=== PATIENT | female | born 1995 | race American Indian/Alaskan Native ===

== ENCOUNTER 2021-03-31 05:03 | Emergency (ER) | payer SELFPAY ==
--- NOTE | 2021-03-31 05:25 | Event Note ---
ED Screening Note Date of service: 03/31/21 Time: : ED Screening Note: Patient is an adult female brought in by EMS for altered mental status. Patient was reportedly found naked running behind a gas station. Police and EMS were called and the patient continued to exhibit erratic behavior necessitating sedation by EMS with Versed 5 mg, Benadryl 50 mg and Haldol 5 prior to arrival. Patient sleeping upon arrival This initial assessment/diagnostic orders/clinical plan/treatment(s) is/are subject to change based on patients health status, clinical progression and re- assessment by fellow clinical providers in the ED. Further treatment and workup at subsequent clinical providers discretion. Patient/guardian urged not to elope from the ED as their condition may be serious if not clinically assessed and managed. Initial orders include: CBC, CMP, thyroid panel, S hCG, CK, UA, UDS, blood alcohol, CT head, EKG
[2021-03-31 05:54] LABS: Basophils # (Auto) 0.1 K/mm3 (0.0-0.1); Basophils % (Auto) 0.6 % (0.0-1.8); Eosinophils # (Auto) 0.1 K/mm3 (0.0-0.4); Hematocrit 37.9 % (30.3-42.9); Hemoglobin 12.6 gm/dl (10.1-14.3); Lymphocytes # (Auto) 1.4 K/mm3 (1.2-5.4); Lymphocytes % (Auto) 12.3 % (13.4-35.0); Mean Corpuscular HGB Conc 33 % (30-34); Mean Corpuscular Volume 90 fl (79-97); Monocytes # (Auto) 0.8 K/mm3 (0.0-0.8); Monocytes % (Auto) 6.5 % (0.0-7.3); Platelet Count 226 K/mm3 (140-440); Red Blood Count 4.22 M/mm3 (3.65-5.03); Red Cell Distribution Width 12.9 % (13.2-15.2)
[2021-03-31 05:57] LABS: Alanine Aminotransferase 35 units/L (7-56); Albumin 4.2 g/dL (3.9-5); Blood Urea Nitrogen 11 mg/dL (7-17); Hemolysis Index 5
[2021-03-31 06:01] LABS: BUN/Creatinine Ratio 18
[2021-03-31 06:09] LABS: Free T4 (Free Thyroxine) 1.36 ng/dL (0.76-1.46)
--- NOTE | 2021-03-31 06:09 | Emergency Department Report ---
ED General Adult HPI - General Chief complaint: Altered Mental Status Stated complaint: AMS Time Seen by Provider: 03/31/21 06:00 Source: police, EMS ( EMS documentation not available at time of chart dictation ), RN notes reviewed Mode of arrival: Stretcher Limitations: Altered Mental Status - History of Present Illness Initial comments: The patient was evaluated in the emergency department for symptoms described in the history of present illness. He/she was evaluated in the context of the global COVID-19 pandemic, which necessitated consideration that the patient might be at risk for infection with the virus that causes COVID-19. Institutional protocols and algorithms that pertain to the evaluation of patients at risk for COVID-19 are in a state of rapid change based on information released by regulatory bodies including the CDC and federal and state organizations. These policies and algorithms were followed during the patient's care in the emergency department. Please note that these policies, procedures and recommendations changed on a rapid basis. This is an -Filipino female, who appears to be in her mid 30s, who is not known to myself previously. The patient is currently sedated and disorganized. History obtained from review of medical records and verbal report from preceding physician and nursing team. The patient is reportedly found naked behind a gas station. She was reportedly acting bizarrely and erratically. It is not known who contacted 911 or emergency medical services. Patient reportedly agitated, and prior to my personal evaluation of this patient, received Haldol, Benadryl, and Ativan, reportedly for agitation. In the emergency room, the patient is sedated, moves 4 extremities, and is disor ganized. 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 She is not accompanied by friends or family at this time for collateral information or additional information. No additional history is available at this time -: unknown Severity scale (0 -10): 0 - Related Data Allergies Allergy/AdvReac Type Severity Reaction Status Date / Time Unable to Assess Allergy Unverified 03/31/21 06:13 ED Review of Systems ROS: Stated complaint: AMS Other details as noted in HPI Comment: Unobtainable due to pts medical conditions ED Physical Exam - General Limitations: Altered Mental Status General appearance: in no apparent distress - Head Head exam: Present: atraumatic, normocephalic - Eye Eye exam: Present: normal appearance, EOMI. Absent: nystagmus - ENT ENT exam: Present: normal exam, normal orophraynx, mucous membranes moist, normal external ear exam - Neck Neck exam: Present: normal inspection, full ROM. Absent: tenderness, meningismus - Respiratory Respiratory exam: Present: normal lung sounds bilaterally. Absent: respiratory distress, wheezes, rales, stridor, decreased breath sounds - Cardiovascular Cardiovascular Exam: Present: regular rate, normal rhythm, normal heart sounds. Absent: bradycardia, tachycardia, irregular rhythm, systolic murmur, diastolic murmur, rubs, gallop - GI/Abdominal GI/Abdominal exam: Present: soft, normal bowel sounds. Absent: distended, tenderness, guarding, rebound, rigid, pulsatile mass - External exam: Present: normal external exam - Extremities Exam Extremities exam: Present: normal inspection, full ROM, other (2+ pulses noted in the bilateral upper and lower extremities. There is no palpable cord. negative Homans sign. Muscular compartments are soft. The pelvis is stable.). Absent: pedal edema, calf tenderness - Back Exam Back exam: Present: normal inspection. Absent: tenderness, CVA tenderness (R), CVA tenderness (L), paraspinal tenderness, vertebral tenderness - Neurological Exam Neurological exam: Present: altered, other (Moves 4 extremities spontaneously. Answers questions nonsensically occasionally. No facial droop. Sensation intact to pinch in 4 extremities.) - Skin Skin exam: Present: warm, dry, intact, normal color. Absent: rash ED Course Vital Signs 03/31/21 03/31/21 03/31/21 05:14 05:35 06:27 Temperature 98.9 F 97.8 F 97.8 F Pulse Rate 83 70 68 Respiratory 18 20 20 Rate Blood Pressure 127/75 124/73 113/62 [Left] O2 Sat by Pulse 98 100 99 Oximetry O2 Sat by Pulse Oximetry [ Digit-Finger] 03/31/21 06:28 Temperature Pulse Rate Respiratory Rate Blood Pressure [Left] O2 Sat by Pulse Oximetry O2 Sat by Pulse 99 Oximetry [ Digit-Finger] - Reevaluation(s) Reevaluation #1: 03/31/21 06:11 Differential diagnosis, including but not limited to: Psychosis, thyroid derangement, electrolyte derangement, urinary tract infection, intracranial lesion Assessment and plan: Young -Filipino female with psychosis and disorganized behavior, who was afebrile with reassuring vital signs without meningeal signs. Suspect Sulphur I psychiatric diagnosis, versus drug-induced psychosis versus both. Patient placed on 1013 for psychotic behavior and inability to care for self. Laboratory studies pending. Noncontrast CT scan of the brain, urinalysis and EKG pending. Psychiatric consultation requested, Covid swab ordered in anticipation of psychiatric disposition. Reevaluation #2: 03/31/21 06:[address] scan of the brain to my interpretation appears to be negative for acute findings. Formal radiology interpretation is pending. Laboratory studies and EKG are unremarkable, mild hypokalemia reviewed and appreciated, oral potassium is ordered. The urinalysis is pending, and the emergency room will follow along. Urine drug screen will not change our clinical decision making at this time. At this point in time, this patient does not appear to have an immediate medical contraindication to psychiatric admission, evaluation, consultation and placement. - Pulse Oximetry Interpretation Digit-Finger Initial Pulse Oximetry Readin O2 Sat by Pulse Oximetry: 99 Actions Taken: none ED Medical Decision Making - Lab Data Result diagrams: 03/31/21 05:23 03/31/21 05:23 Vital Signs 03/31/21 03/31/21 05:14 05:35 Temperature 98.9 F 97.8 F Pulse Rate 83 70 Respiratory 18 20 Rate Blood Pressure 127/75 124/73 [Left] O2 Sat by Pulse 98 100 Oximetry Lab Results 03/31/21 03/31/21 03/31/21 Range/Units 05:23 05:23 05:23 WBC 11.6 H (4.5-11.0) K/mm3 RBC 4.22 (3.65-5.03) M/mm3 Hgb 12.6 (10.1-14.3) gm/dl Hct 37.9 (30.3-42.9) % MCV 90 (79-97) fl MCH 30 (28-32) pg MCHC 33 (30-34) % RDW 12.9 L (13.2-15.2) % Plt Count 226 (140-440) K/mm3 Lymph % (Auto) 12.3 L (13.4-35.0) % Winkler % (Auto) 6.5 (0.0-7.3) % Eos % (Auto) 1.0 (0.0-4.3) % Baso % (Auto) 0.6 (0.0-1.8) % Lymph # (Auto) 1.4 (1.2-5.4) K/mm3 Winkler # (Auto) 0.8 (0.0-0.8) K/mm3 Eos # (Auto) 0.1 (0.0-0.4) K/mm3 Baso # (Auto) 0.1 (0.0-0.1) K/mm3 Seg Neutrophils % 79.6 H (40.0-70.0) % Seg Neutrophils # 9.3 H (1.8-7.7) K/mm3 Sodium 139 (137-145) mmol/L Potassium 3.3 L (3.6-5.0) mmol/L Chloride 105.4 (98-107) mmol/L Carbon Dioxide 20 L (22-30) mmol/L Anion Gap 17 mmol/L BUN 11 (7-17) mg/dL Creatinine 0.6 (0.6-1.2) mg/dL Estimated GFR > 60 ml/min BUN/Creatinine Ratio 18 % Glucose 95 (65-100) mg/dL Calcium 9.0 (8.4-10.2) mg/dL Total Bilirubin 1.10 (0.1-1.2) mg/dL AST 79 H (5-40) units/L ALT 35 (7-56) units/L Alkaline Phosphatase 40 (35-129) units/L Total Protein 7.0 (6.3-8.2) g/dL Albumin 4.2 (3.9-5) g/dL Albumin/Globulin Ratio 1.5 % HCG, Qual (Negative) Salicylates < 0.3 L (2.8-20.0) mg/dL Acetaminophen (10.0-30.0) ug/mL 03/31/21 03/31/21 Range/Units 05:23 05:23 WBC (4.5-11.0) K/mm3 RBC (3.65-5.03) M/mm3 Hgb (10.1-14.3) gm/dl Hct (30.3-42.9) % MCV (79-97) fl MCH (28-32) pg MCHC (30-34) % RDW (13.2-15.2) % Plt Count (140-440) K/mm3 Lymph % (Auto) (13.4-35.0) % [place]inkler % (Auto) (0.0-7.3) % Eos % (Auto) (0.0-4.3) % Baso % (Auto) (0.0-1.8) % Lymph # (Auto) (1.2-5.4) K/mm3 Winkler # (Auto) (0.0-0.8) K/mm3 Eos # (Auto) (0.0-0.4) K/mm3 Baso # (Auto) (0.0-0.1) K/mm3 Seg Neutrophils % (40.0-70.0) % Seg Neutrophils # (1.8-7.7) K/mm3 Sodium (137-145) mmol/L Potassium (3.6-5.0) mmol/L Chloride (98-107) mmol/L Carbon Dioxide (22-30) mmol/L Anion Gap mmol/L BUN (7-17) mg/dL Creatinine (0.6-1.2) mg/dL Estimated GFR ml/min BUN/Creatinine Ratio % Glucose (65-100) mg/dL Calcium (8.4-10.2) mg/dL Total Bilirubin (0.1-1.2) mg/dL AST (5-40) units/L ALT (7-56) units/L Alkaline Phosphatase (35-129) units/L Total Protein (6.3-8.2) g/dL Albumin (3.9-5) g/dL Albumin/Globulin Ratio % HCG, Qual Negative (Negative) Salicylates (2.8-20.0) mg/dL Acetaminophen 5.0 L (10.0-30.0) ug/mL - EKG Data -: EKG Interpreted by Me EKG shows normal: sinus rhythm Rate: normal - EKG Data When compared to previous EKG there are: previous EKG unavailable 03/31/21 06:27 The EKG is interpreted at 06: 22 Sinus rhythm, rate 67 bpm. Normal axis, normal intervals, normal P wave axis. This is not a STEMI - Radiology Data Radiology results: pending, report reviewed, image reviewed interpreted by me: Noncontrast CT scan of the brain, reviewed by myself, demonstrates no acute findings. Specifically, no evidence of mass, intracranial hemorrhage, or ob structive hydrocephalus. The visualized bony structures are unremarkable. . CT HEAD WITHOUT CONTRAST INDICATION / CLINICAL INFORMATION: Altered mental status. TECHNIQUE: All CT scans at this location are performed using CT dose reduction for ALARA by means of automated exposure control. COMPARISON: None available. FINDINGS: No acute intracranial hemorrhage. Ventricles are normal in size without midline shift or mass effect. No extra-axial fluid collection is seen. Sella appears normal ADDITIONAL FINDINGS: None. IMPRESSION: 1. No acute intracranial abnormality. Signer Name: Dejan Pantoja MD Signed: 03/31/2021 5:33 AM Workstation Name: [id number] Critical care attestation.: If time is entered above; I have spent that time in minutes in the direct care of this critically ill patient, excluding procedure time. ED Disposition Clinical Impression: Psychosis, Agitation, Medical clearance for psychiatric admission Disposition: [address] [place] [address] Is pt being admited?: No Does the pt Need Aspirin: No Condition: Good
--- NOTE | 2021-03-31 06:38 | Cat Scan Report ---
. CT HEAD WITHOUT CONTRAST INDICATION / CLINICAL INFORMATION: Altered mental status. TECHNIQUE: All CT scans at this location are performed using CT dose reduction for ALARA by means of automated e xposure control. COMPARISON: None available. FINDINGS: No acute intracranial hemorrhage. Ventricles are normal in size without midline shift or mass effect. No extra-axial fluid collection is seen. Sella appears normal ADDITIONAL FINDINGS: None. IMPRESSION: 1. No acute intracranial abnormality. Signer Name: Dejan Pantoja MD Signed: 03/31/2021 6:33 AM Workstation Name: [email or web address]
[2021-03-31] MEDS: LORazepam 2 MG/ML VIAL IM PRN (10:06)
[2021-03-31] MEDS: POTASSIUM CHLORIDE ER 20 MEQ TAB PO SCH (10:06)
--- NOTE | 2021-03-31 13:04 | Consultation ---
History of Present Illness - Reason for Consult Consult date: 03/31/21 Reason for consult: mental health evaluation - History of Present Psychiatric Illness ED Note: This is an -British female, who appears to be in her mid 30s, who is not known to myself previously. The patient is currently sedated and disorganized. History obtained from review of medical records and verbal report from preceding physician and nursing team. The patient is reportedly found naked behind a gas station. She was reportedly acting bizarrely and erratically. It is not known who contacted 911 or emergency medical services. Patient reportedly agitated, and prior to my personal evaluation of this patient, received Haldol, Benadryl, and Ativan, reportedly for agitation. In the emergency room, the patient is sedated, moves 4 extremities, and is disorganized. 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 She is not accompanied by friends or family at this time for collateral information or additional information. The patient was seen this morning. The patient is known to the designer/writer;she has a history of bipolar. In my interview with the patient, she presents with disorganized thoughts, rapid and pressured speech. The patient is alert but lacks orientation. PAST PSYCHIATRIC HISTORY PAST MEDICAL HISTORY: Family Psychiatric History: None reported or documented SOCIAL HISTORY REVIEW OF SYSTEMS MENTAL STATUS EXAMINATION General Appearance and Behavior: Poor hygiene, poor eye contact, calm and cooperative. Cooperation: cooperative Psychomotor Behavior: unremarkable and within normal limits Mood: confused Affect and affective range: congruent with mood Thought Process: Tangential Thought Content: Disorganized Speech:rapid,pressured Suicidal Ideation: Unable to assess Homicidal Ideation: unable to assess Hallucinations: Unable to assess Delusions: None elicited Impulse Control: Impaired Insight and Judgment:Nil insight and poor judgment Memory: Impaired Attention: Distractible Orientation: Alert, Assessment (1) Bipolar C 1013 Treatment Plan Continue previously prescribed meds Start Depakote Dr 500mg po BID Start Seroquel 100mg po QHS Start Seroquel 50mg po BID Medical: per primary Disposition: Recommend acute psychiatric inpatient treatment Will follow. Thanks Case staffed with Dr. Jean-Baptiste Medications and Allergies Medications and Allergies Allergies Allergy/AdvReac Type Severity Reaction Status Date / Time Unable to Assess Allergy Unverified 03/31/21 06:13 Active Meds: Active Medications Haloperidol Lactate (Haloperidol Lactate 5 Mg/1 Ml Inj) 5 mg IM Q6H PRN PRN Reason: Agitation Lorazepam (Lorazepam 2 Mg/Ml Vial) 2 mg IM Q4H PRN PRN Reason: Agitation Last Admin: 03/31/21 10:06 Dose: 2 mg Potassium Chloride (Potassium Chloride Er 20 Meq Tab) 40 meq PO QDAY DAMION Last Admin: 03/31/21 10:06 Dose: Not Given Mental Status Exam - Vital signs Last Vital Signs Temp 97.8 F 03/31/21 06:27 Pulse 95 H 03/31/21 09:23 Resp 15 03/31/21 09:23 BP 97/77 03/31/21 09:23 Pulse Ox 100 03/31/21 09:23 Results Result Diagrams: 03/31/21 05:23 03/31/21 05:23 Abnormal lab results 03/31/21 03/31/21 03/31/21 Range/Units 05:23 05:23 05:23 WBC 11.6 H (4.5-11.0) K/mm3 RDW 12.9 L (13.2-15.2) % Lymph % (Auto) 12.3 L (13.4-35.0) % Seg Neutrophils % 79.6 H (40.0-70.0) % Seg Neutrophils # 9.3 H (1.8-7.7) K/mm3 Potassium 3.3 L (3.6-5.0) mmol/L Carbon Dioxide 20 L (22-30) mmol/L AST 79 H (5-40) units/L Total Creatine Kinase 3977 H (30-135) units/L Salicylates < 0.3 L (2.8-20.0) mg/dL Acetaminophen (10.0-30.0) ug/mL 03/31/21 Range/Units 05:23 WBC (4.5-11.0) K/mm3 RDW (13.2-15.2) % Lymph % (Auto) (13.4-35.0) % Seg Neutrophils % (40.0-70.0) % Seg Neutrophils # (1.8-7.7) K/mm3 Potassium (3.6-5.0) mmol/L Carbon Dioxide (22-30) mmol/L AST (5-40) units/L Total Creatine Kinase (30-135) units/L Salicylates (2.8-20.0) mg/dL Acetaminophen 5.0 L (10.0-30.0) ug/mL All other labs normal.
[2021-03-31] MEDS: DIVALPROEX DR 500 MG TAB PO SCH ×2 (15:02→22:59)
[2021-03-31] MEDS ORDERED: QUEtiapine 25 MG TAB PO SCH (22:00)
[2021-03-31] MEDS ORDERED: QUEtiapine 100 MG TAB PO SCH (22:00)
[2021-04-01] MEDS: LORazepam 2 MG/ML VIAL IM PRN (07:16)
[2021-04-01] MEDS: HALOPERIDOL LACTATE 5 MG/1 ML INJ IM PRN (07:16)
--- NOTE | 2021-04-01 09:35 | Progress Note ---
Subjective - Reason for Consult Consult date: 04/01/21 Reason for consult: psychosis - Chief Complaint Chief complaint: The patient was seen today. She is in the observation room. She is irritable. She is pacing and hits the glass. Her thoughts are disorganized. She doesn't answer any question I ask her, she just rambles most of the time. REVIEW OF SYSTEMS MENTAL STATUS EXAMINATION General Appearance and Behavior: Poor hygiene, poor eye contact, irritable, and cooperative. Cooperation: cooperative Psychomotor Behavior: unremarkable and within normal limits Mood: irritable Affect and affective range: congruent with mood Thought Process: Tangential Thought Content: Disorganized Speech: rambling Suicidal Ideation: Unable to assess Homicidal Ideation: unable to assess Hallucinations: Unable to assess Delusions: None elicited Impulse Control: Impaired Insight and Judgment:Nil insight and poor judgment Memory: Impaired Attention: Distractible Orientation: Alert, Assessment (1) Bipolar Treatment Plan 1013 Increase Seroquel 100mg po TID Medical: per primary Disposition: Recommend acute psychiatric inpatient treatment Will follow. Thanks Case staffed with Dr. Jean-Baptiste Mental Status Exam - Vital signs Last Vital Signs Temp 97.8 F 03/31/21 21:14 Pulse 75 03/31/21 21:14 Resp 20 03/31/21 21:14 BP 120/68 03/31/21 21:14 Pulse Ox 100 03/31/21 21:14
[2021-04-01] MEDS ORDERED: SERTRALINE 100 MG TAB ONE (10:24)
[2021-04-01] MEDS: DIVALPROEX DR 500 MG TAB PO SCH ×2 (10:25→22:15)
[2021-04-01] MEDS: POTASSIUM CHLORIDE ER 20 MEQ TAB PO SCH (10:25)
[2021-04-01] MEDS: QUEtiapine 100 MG TAB PO SCH ×3 (10:26→22:15)
--- NOTE | 2021-04-01 11:42 | Emergency Department Report ---
Blank Doc - Documentation Documentation: 26-year-old female currently on 1013 with psychosis and disorganized behavior continually taken off her clothes. Tolerating p.o. medication. Requiring IM medication. Refuses Covid test. Vital signs stable. Awaiting placement
[2021-04-02] MEDS: QUEtiapine 100 MG TAB PO SCH (09:11)
[2021-04-02] MEDS ORDERED: IBUPROFEN 600 MG TAB PO ONE (09:30)
--- NOTE | 2021-04-02 09:36 | Progress Note ---
Subjective - Reason for Consult Consult date: 04/02/21 Reason for consult: psychosis - Chief Complaint Chief complaint: The patient was seen today. She is still acutely psychotic. Her mood is elevated. She says she's doing wonderful. The patient also says she's blessed and highly favored. She is rambling about nonsensical things. Staff says she's been smearing poop over the wall. REVIEW OF SYSTEMS MENTAL STATUS EXAMINATION General Appearance and Behavior: Poor hygiene, poor eye contact, irritable, and cooperative. Cooperation: cooperative Psychomotor Behavior: unremarkable and within normal limits Mood: irritable Affect and affective range: congruent with mood Thought Process: Tangential Thought Content: Disorganized Speech: rambling Suicidal Ideation: Unable to assess Homicidal Ideation: unable to assess Hallucinations: Unable to assess Delusions: None elicited Impulse Control: Impaired Insight and Judgment:Nil insight and poor judgment Memory: Impaired Attention: Distractible Orientation: Alert, Assessment (1) Bipolar Treatment Plan 1013 Increase Seroquel 200mg po BID Medical: per primary Disposition: Recommend acute psychiatric inpatient treatment Will follow. Thanks Case staffed with Dr. Jean-Baptiste Mental Status Exam - Vital signs Last Vital Signs Temp 97.5 F L 04/02/21 04:46 Pulse 69 04/02/21 04:46 Resp 18 04/02/21 09:33 BP 108/78 04/02/21 04:46 Pulse Ox 99 04/02/21 04:46
[2021-04-02] MEDS: LORazepam 2 MG/ML VIAL IM PRN ×2 (11:05→17:03)
[2021-04-02] MEDS: HALOPERIDOL LACTATE 5 MG/1 ML INJ IM PRN ×2 (11:06→17:03)
[2021-04-02] MEDS: DIVALPROEX DR 500 MG TAB PO SCH ×2 (11:11→22:20)
[2021-04-02] MEDS: POTASSIUM CHLORIDE ER 20 MEQ TAB PO SCH (11:11)
[2021-04-02] MEDS: QUEtiapine 200 MG TAB PO SCH ×2 (11:11→22:20)
--- NOTE | 2021-04-02 11:39 | Electrocardiograph Report ---
[facility] Test Date: 2021-03-31 Test Time: 06:22:23 Pat Name: JAVED BROWN Department: Room: Gender: F Public Health Inspector: ELIAZAR : 1995 Requested By: SAROJ ROTHMAN Order Number: [id number] Reading MD: Anil Loya Measurements Intervals [place] Rate: 67 P: 67 SC: 134 QRS: 32 QRSD: 92 T: 55 QT: 400 QTc: 422 Interpretive Statements Sinus rhythm No previous ECG available for comparison Electronically Signed On 04-02-2021 11:39:07 EST by Anil Loya
--- NOTE | 2021-04-02 12:31 | Event Note ---
Date: 04/02/21 26-year-old female here with psychosis. She was seen by my colleague and was medically cleared for psychiatric evaluation placement. Vital signs reviewed and are stable. Overnight there were no acute events although the patient has continued to display psychotic behavior and at one point was seen playing with feces. Currently awaiting inpatient psychiatric facility placement.
--- NOTE | 2021-04-03 09:21 | Emergency Department Report ---
Blank Doc - Documentation Documentation: Patient is here with acute psychosis. There were no events throughout the [facility]. We are awaiting psychiatric placement. Labs have been reviewed.
--- NOTE | 2021-04-03 09:41 | Progress Note ---
Subjective - Reason for Consult Consult date: 04/03/21 Reason for consult: psychosis - Chief Complaint Chief complaint: The patient was seen today. Her affect is flat. She is responding to internal stimuli. She says "I'm aggravated." The patient's speech is disorganized. She is repeating words, and making repetitive sounds. She says "I need the quietapine." She denies SI/HI. REVIEW OF SYSTEMS MENTAL STATUS EXAMINATION General Appearance and Behavior: Poor hygiene, poor eye contact, irritable, and cooperative. Cooperation: cooperative Psychomotor Behavior: unremarkable and within normal limits Mood: irritable Affect and affective range: congruent with mood Thought Process: Tangential Thought Content: Disorganized Speech: rambling Suicidal Ideation: Unable to assess Homicidal Ideation: unable to assess Hallucinations: Unable to assess Delusions: None elicited Impulse Control: Impaired Insight and Judgment:Nil insight and poor judgment Memory: Impaired Attention: Distractible Orientation: Alert, Assessment (1) Bipolar Treatment Plan 1013 Increase Seroquel 300mg po BID Medical: per primary Disposition: Recommend acute psychiatric inpatient treatment Will follow. Thanks Case staffed with Dr. Jean-Baptiste Mental Status Exam - Vital signs Last Vital Signs Temp 97.6 F 04/02/21 21:07 Pulse 84 04/02/21 21:07 Resp 18 04/03/21 05:29 BP 133/89 04/02/21 21:07 Pulse Ox 97 04/03/21 05:29
[2021-04-03 10:11] LABS: Amphetamine Screen,Urine Negative; Benzodiazepines Screen,Urine Negative; Cannabinoid Screen,Urine Negative; Cocaine Screen,Urine Negative; Methadone Screen,Urine Negative; Opiate Screen,Urine Negative
[2021-04-03] MEDS: POTASSIUM CHLORIDE ER 20 MEQ TAB PO SCH (10:13)
[2021-04-03] MEDS: DIVALPROEX DR 500 MG TAB PO SCH ×2 (10:13→22:25)
[2021-04-03 10:28] LABS: Bilirubin,Urine NEG (Negative); Blood,Urine NEG (Negative); Color,Urine Yellow (Yellow); Protein,Urine <15 mg/dL mg/dL (Negative); WBC,Urine < 1.0 /HPF (0.0-6.0)
[2021-04-03] MEDS: QUEtiapine 100 MG TAB PO SCH ×2 (11:01→22:25)
[2021-04-03] MEDS: LORazepam 2 MG/ML VIAL IM PRN (16:10)
[2021-04-03] MEDS: HALOPERIDOL LACTATE 5 MG/1 ML INJ IM PRN (16:10)
--- NOTE | 2021-04-04 08:47 | Progress Note ---
Subjective - Reason for Consult Consult date: 04/04/21 Reason for consult: Psychosis - Chief Complaint Chief complaint: The patient was seen today. She has the linen over her head. She is says she is feeling "great." She asks, "how much longer are you going to re-hostage evil." The patient denies SI/HI. She says "why would I do that. I love myself and my family." She denies hallucinations. The nursing staff states the patient has been confused, restless, and states she fulled down her pants and defecated on the floor. REVIEW OF SYSTEMS MENTAL STATUS EXAMINATION General Appearance and Behavior: Poor hygiene, poor eye contact, irritable, and cooperative. Cooperation: cooperative Psychomotor Behavior: unremarkable and within normal limits Mood: great Affect and affective range: congruent with mood Thought Process: Tangential Thought Content: Disorganized Speech: rambling Suicidal Ideation: Unable to assess Homicidal Ideation: unable to assess Hallucinations: Unable to assess Delusions:Yes Impulse Control: Impaired Insight and Judgment: Poor insight and poor judgment Memory: Impaired Attention: Distractible Orientation: Alert, Assessment (1) Bipolar Treatment Plan 1013 Start Trazodone 50mg po qhs Start Klonopin 0.25mg po BID x 3 days Seroquel 300mg po BID Medical: per primary Disposition: Recommend acute psychiatric inpatient treatment Will follow. Thanks Case staffed with Dr. Jean-Baptiste Mental Status Exam - Vital signs Last Vital Signs Temp 98.3 F 04/03/21 20:03 Pulse 94 H 04/03/21 20:03 Resp 18 04/03/21 20:03 BP 123/85 04/03/21 20:03 Pulse Ox 100 04/04/21 07:46
[2021-04-04] MEDS: QUEtiapine 100 MG TAB PO SCH ×2 (09:47→22:50)
[2021-04-04] MEDS: clonazePAM 0.5 MG TAB PO SCH ×2 (09:47→22:45)
[2021-04-04] MEDS: DIVALPROEX DR 500 MG TAB PO SCH ×2 (09:47→22:49)
[2021-04-04] MEDS: POTASSIUM CHLORIDE ER 20 MEQ TAB PO SCH (09:47)
--- NOTE | 2021-04-04 11:32 | Emergency Department Report ---
Blank Doc - Documentation Documentation: Patient is still psychotic. Her bipolar disorder has been decompensated. We are awaiting psychiatric admission.
[2021-04-04] MEDS: HALOPERIDOL LACTATE 5 MG/1 ML INJ IM PRN (13:59)
[2021-04-04] MEDS: traZODone 50 MG TAB PO SCH (22:49)
--- NOTE | 2021-04-05 10:32 | Progress Note ---
Subjective - Reason for Consult Consult date: 04/05/21 Reason for consult: phsychosis - Chief Complaint Chief complaint: The patient was seen today. She is lying on a bench in hallway. She still presents as psychotic, although she is asking to go home. She says "I feel great. I'm just staying out the mix." She denies SI/HI or hallucinations. Staff states the patient has been pushing limits with staff and has had increasing agitation. REVIEW OF SYSTEMS MENTAL STATUS EXAMINATION General Appearance and Behavior: Poor hygiene, poor eye contact, irritable, and cooperative. Cooperation: cooperative Psychomotor Behavior: unremarkable and within normal limits Mood: great Affect and affective range: congruent with mood Thought Process: Tangential Thought Content: Disorganized Speech: rambling Suicidal Ideation: Unable to assess Homicidal Ideation: unable to assess Hallucinations: Unable to assess Delusions:Yes Impulse Control: Impaired Insight and Judgment: Poor insight and poor judgment Memory: Impaired Attention: Distractible Orientation: Alert, Assessment (1) Bipolar Treatment Plan [address] 500mg po TID Medical: per primary Disposition: Recommend acute psychiatric inpatient treatment Will follow. Thanks Case staffed with Dr. Jean-Baptiste Mental Status Exam - Vital signs Last Vital Signs Temp 98.2 F 04/05/21 02:54 Pulse 74 04/05/21 02:54 Resp 16 04/05/21 02:54 BP 108/57 04/05/21 02:54 Pulse Ox 98 04/05/21 02:54
--- NOTE | 2021-04-05 11:20 | Emergency Department Report ---
Blank Doc - Documentation Documentation: Chart reviewed 26-year-old female currently on 1013 for acute psychosis awaiting placement. Patient required IM medication for agitation last night. She is compliant with p.o. medication. Vital signs within normal limits
[2021-04-05] MEDS: clonazePAM 0.5 MG TAB PO SCH ×2 (13:25→22:45)
[2021-04-05] MEDS: POTASSIUM CHLORIDE ER 20 MEQ TAB PO SCH (13:25)
[2021-04-05] MEDS: QUEtiapine 100 MG TAB PO SCH ×2 (13:26→22:45)
[2021-04-05 14:39] LABS: Basophils # (Auto) 0.1 K/mm3 (0.0-0.1); Eosinophils # (Auto) 0.3 K/mm3 (0.0-0.4); Eosinophils % (Auto) 3.4 % (0.0-4.3); Hematocrit 39.6 % (30.3-42.9); Hemoglobin 12.8 gm/dl (10.1-14.3); Lymphocytes # (Auto) 2.1 K/mm3 (1.2-5.4); Lymphocytes % (Auto) 27.5 % (13.4-35.0); Mean Corpuscular HGB Conc 32 % (30-34); Mean Corpuscular Volume 93 fl (79-97); Monocytes # (Auto) 0.5 K/mm3 (0.0-0.8); Monocytes % (Auto) 6.5 % (0.0-7.3); Platelet Count 200 K/mm3 (140-440); Red Blood Count 4.26 M/mm3 (3.65-5.03); Red Cell Distribution Width 13.1 % (13.2-15.2)
[2021-04-05] MEDS: DIVALPROEX DR 500 MG TAB PO SCH (22:45)
[2021-04-05] MEDS: traZODone 50 MG TAB PO SCH (22:45)
[2021-04-06] MEDS: POTASSIUM CHLORIDE ER 20 MEQ TAB PO SCH (09:53)
[2021-04-06] MEDS: QUEtiapine 100 MG TAB PO SCH (09:53)
[2021-04-06] MEDS: clonazePAM 0.5 MG TAB PO SCH (09:53)
[2021-04-06] MEDS: DIVALPROEX DR 500 MG TAB PO SCH (10:01)
--- NOTE | 2021-04-06 11:25 | Progress Note ---
Subjective - Reason for Consult Consult date: 04/06/21 Reason for consult: psychosis - Chief Complaint Chief complaint: The patient was seen today. She is significantly better. The patient says "I actually feel good. I've done everything I'm supposed to do." She says "I've been relaxed, calm for the most part. I've been taking my meds. I feel stable to go home." The patient says she slept "very well." She denies SI/HI. She says "no, I got kids to raise." The patient denies hallucinations of any kind. The shift nurse is with me during the evaluation. REVIEW OF SYSTEMS Constitutional: Negative for weight loss ENT: Negative for stridor Respiratory: Negative for cough or hemoptysis All other systems reviewed and are negative MENTAL STATUS EXAMINATION General Appearance and Behavior: Poor hygiene, poor eye contact, calm and cooperative Cooperation: cooperative Psychomotor Behavior: unremarkable and within normal limits Mood: good Affect and affective range: congruent with mood Thought Process: goal directed Thought Content: None Speech: Normal tone and pace Suicidal Ideation: Denies Homicidal Ideation: Denies Hallucinations: Denies Delusions: None elicited Impulse Control: Limited Insight and Judgment: Limited insight and poor judgment Memory: Impaired Attention: attentive Orientation: a/o x 3 Assessment (1) Bipolar Treatment Plan d/c [address] 500mg po TID Seroquel 300mg po BID Trazodone 50mg po qhs Medical: per primary Disposition: Do not recommend acute psychiatric inpatient treatment Will sign off. Thanks Case staffed with Dr. Jean-Baptiste Mental Status Exam - Vital signs Last Vital Signs Temp 97.8 F 04/05/21 22:55 Pulse 94 H 04/05/21 22:55 Resp 18 04/06/21 05:50 BP 118/77 04/05/21 22:55 Pulse Ox 99 04/06/21 10:52
[2021-04-06 12:38] VITALS: BP 134/74
--- NOTE | 2021-04-06 13:48 | Event Note ---
Date: 04/06/21 Patient is seen and examined. She is awake, alert, oriented, clinically sober and walking with a steady gait. She endorses no physical pain. The nursing team have not endorsed any concerns this morning. The psychiatric team have advised discharge from a psychiatric perspective. The patient was deemed medically suitable for psychiatric disposition on her initial ER evaluation by myself, and she does not appear to have an emergent medical condition present at this time which would preclude discharge. Lab Results 03/31/21 03/31/21 03/31/21 Range/Units 05:23 05:23 05:23 WBC 11.6 H (4.5-11.0) K/mm3 RBC 4.22 (3.65-5.03) M/mm3 Hgb 12.6 (10.1-14.3) gm/dl Hct 37.9 (30.3-42.9) % MCV 90 (79-97) fl MCH 30 (28-32) pg MCHC 33 (30-34) % RDW 12.9 L (13.2-15.2) % Plt Count 226 (140-440) K/mm3 Lymph % (Auto) 12.3 L (13.4-35.0) % [place] % (Auto) 6.5 (0.0-7.3) % Eos % (Auto) 1.0 (0.0-4.3) % Baso % (Auto) 0.6 (0.0-1.8) % Lymph # (Auto) 1.4 (1.2-5.4) K/mm3 [place] # (Auto) 0.8 (0.0-0.8) K/mm3 Eos # (Auto) 0.1 (0.0-0.4) K/mm3 Baso # (Auto) 0.1 (0.0-0.1) K/mm3 Seg Neutrophils % 79.6 H (40.0-70.0) % Seg Neutrophils # 9.3 H (1.8-7.7) K/mm3 Sodium 139 (137-145) mmol/L Potassium 3.3 L (3.6-5.0) mmol/L Chloride 105.4 (98-107) mmol/L Carbon Dioxide 20 L (22-30) mmol/L Anion Gap 17 mmol/L BUN 11 (7-17) mg/dL Creatinine 0.6 (0.6-1.2) mg/dL Estimated GFR > 60 ml/min BUN/Creatinine Ratio 18 % Glucose 95 (65-100) mg/dL Calcium 9.0 (8.4-10.2) mg/dL Total Bilirubin 1.10 (0.1-1.2) mg/dL AST 79 H (5-40) units/L ALT 35 (7-56) units/L Alkaline Phosphatase 40 (35-129) units/L Total Creatine Kinase 3977 H (30-135) units/L Total Protein 7.0 (6.3-8.2) g/dL Albumin 4.2 (3.9-5) g/dL Albumin/Globulin Ratio 1.5 % TSH (0.270-4.200) mlU/mL Free T4 (0.76-1.46) ng/dL HCG, Qual (Negative) Urine Color (Yellow) Urine Turbidity (Clear) Urine pH (5.0-7.0) Ur Specific [place] (1.003-1.030) Urine Protein (Negative) mg/dL Urine Glucose (UA) (Negative) mg/dL Urine Ketones (Negative) mg/dL Urine Blood (Negative) Urine Nitrite (Negative) Urine Bilirubin (Negative) Urine Urobilinogen (<2.0) mg/dL Ur Leukocyte Esterase (Negative) Urine WBC (Auto) (0.0-6.0) /HPF Urine RBC (Auto) (0.0-6.0) /HPF Salicylates < 0.3 L (2.8-20.0) mg/dL Urine Opiates Screen Urine Methadone Screen Acetaminophen (10.0-30.0) ug/mL Ur Barbiturates Screen Ur Phencyclidine Scrn Ur Amphetamines Screen U Benzodiazepines Scrn Urine Cocaine Screen U Marijuana (THC) Screen Drugs of Abuse Note Plasma/Serum Alcohol (0-0.07) % Coronavirus (PCR) (Negative) 03/31/21 03/31/21 03/31/21 Range/Units 05:23 05:23 05:23 WBC (4.5-11.0) K/mm3 RBC (3.65-5.03) M/mm3 Hgb (10.1-14.3) gm/dl Hct (30.3-42.9) % MCV (79-97) fl MCH (28-32) pg MCHC (30-34) % RDW (13.2-15.2) % Plt Count (140-440) K/mm3 Lymph % (Auto) (13.4-35.0) % [place] % (Auto) (0.0-7.3) % Eos % (Auto) (0.0-4.3) % Baso % (Auto) (0.0-1.8) % Lymph # (Auto) (1.2-5.4) K/mm3 [place] # (Auto) (0.0-0.8) K/mm3 Eos # (Auto) (0.0-0.4) K/mm3 Baso # (Auto) (0.0-0.1) K/mm3 Seg Neutrophils % (40.0-70.0) % Seg Neutrophils # (1.8-7.7) K/mm3 Sodium (137-145) mmol/L Potassium (3.6-5.0) mmol/L Chloride (98-107) mmol/L Carbon Dioxide (22-30) mmol/L Anion Gap mmol/L BUN (7-17) mg/dL Creatinine (0.6-1.2) mg/dL Estimated GFR ml/min BUN/Creatinine Ratio % Glucose (65-100) mg/dL Calcium (8.4-10.2) mg/dL Total Bilirubin (0.1-1.2) mg/dL AST (5-40) units/L ALT (7-56) units/L Alkaline Phosphatase (35-129) units/L Total Creatine Kinase (30-135) units/L Total Protein (6.3-8.2) g/dL Albumin (3.9-5) g/dL Albumin/Globulin Ratio % TSH (0.270-4.200) mlU/mL Free T4 (0.76-1.46) ng/dL HCG, Qual Negative (Negative) Urine Color (Yellow) Urine Turbidity (Clear) Urine pH (5.0-7.0) Ur Specific [place] (1.003-1.030) Urine Protein (Negative) mg/dL Urine Glucose (UA) (Negative) mg/dL Urine Ketones (Negative) mg/dL Urine Blood (Negative) Urine Nitrite (Negative) Urine Bilirubin (Negative) Urine Urobilinogen (<2.0) mg/dL Ur Leukocyte Esterase (Negative) Urine WBC (Auto) (0.0-6.0) /HPF Urine RBC (Auto) (0.0-6.0) /HPF Salicylates (2.8-20.0) mg/dL Urine Opiates Screen Urine Methadone Screen Acetaminophen 5.0 L (10.0-30.0) ug/mL Ur Barbiturates Screen Ur Phencyclidine Scrn Ur Amphetamines Screen U Benzodiazepines Scrn Urine Cocaine Screen U Marijuana (THC) Screen Drugs of Abuse Note Plasma/Serum Alcohol < 0.01 (0-0.07) % Coronavirus (PCR) (Negative) 03/31/21 04/02/21 04/03/21 Range/Units 05:32 09:40 10:08 WBC (4.5-11.0) K/mm3 RBC (3.65-5.03) M/mm3 Hgb (10.1-14.3) gm/dl Hct (30.3-42.9) % MCV (79-97) fl MCH (28-32) pg MCHC (30-34) % RDW (13.2-15.2) % Plt Count (140-440) K/mm3 Lymph % (Auto) (13.4-35.0) % [place] % (Auto) (0.0-7.3) % Eos % (Auto) (0.0-4.3) % Baso % (Auto) (0.0-1.8) % Lymph # (Auto) (1.2-5.4) K/mm3 [place] # (Auto) (0.0-0.8) K/mm3 Eos # (Auto) (0.0-0.4) K/mm3 Baso # (Auto) (0.0-0.1) K/mm3 Seg Neutrophils % (40.0-70.0) % Seg Neutrophils # (1.8-7.7) K/mm3 Sodium (137-145) mmol/L Potassium (3.6-5.0) mmol/L Chloride (98-107) mmol/L Carbon Dioxide (22-30) mmol/L Anion Gap mmol/L BUN (7-17) mg/dL Creatinine (0.6-1.2) mg/dL Estimated GFR ml/min BUN/Creatinine Ratio % Glucose (65-100) mg/dL Calcium (8.4-10.2) mg/dL Total Bilirubin (0.1-1.2) mg/dL AST (5-40) units/L ALT (7-56) units/L Alkaline Phosphatase (35-129) units/L Total Creatine Kinase 728 H (30-135) units/L Total Protein (6.3-8.2) g/dL Albumin (3.9-5) g/dL Albumin/Globulin Ratio % TSH 0.950 (0.270-4.200) mlU/mL Free T4 1.36 (0.76-1.46) ng/dL HCG, Qual (Negative) Urine Color (Yellow) Urine Turbidity (Clear) Urine pH (5.0-7.0) Ur Specific [place] (1.003-1.030) Urine Protein (Negative) mg/dL Urine Glucose (UA) (Negative) mg/dL Urine Ketones (Negative) mg/dL Urine Blood (Negative) Urine Nitrite (Negative) Urine Bilirubin (Negative) Urine Urobilinogen (<2.0) mg/dL Ur Leukocyte Esterase (Negative) Urine WBC (Auto) (0.0-6.0) /HPF Urine RBC (Auto) (0.0-6.0) /HPF Salicylates (2.8-20.0) mg/dL Urine Opiates Screen Urine Methadone Screen Acetaminophen (10.0-30.0) ug/mL Ur Barbiturates Screen Ur Phencyclidine Scrn Ur Amphetamines Screen U Benzodiazepines Scrn Urine Cocaine Screen U Marijuana (THC) Screen Drugs of Abuse Note Plasma/Serum Alcohol (0-0.07) % Coronavirus (PCR) Negative (Negative) 04/03/21 04/03/21 04/04/21 Range/Units Unknown Unknown 19:33 WBC (4.5-11.0) K/mm3 RBC (3.65-5.03) M/mm3 Hgb (10.1-14.3) gm/dl Hct (30.3-42.9) % MCV (79-97) fl MCH (28-32) pg MCHC (30-34) % RDW (13.2-15.2) % Plt Count (140-440) K/mm3 Lymph % (Auto) (13.4-35.0) % [place] % (Auto) (0.0-7.3) % Eos % (Auto) (0.0-4.3) % Baso % (Auto) (0.0-1.8) % Lymph # (Auto) (1.2-5.4) K/mm3 [place] # (Auto) (0.0-0.8) K/mm3 Eos # (Auto) (0.0-0.4) K/mm3 Baso # (Auto) (0.0-0.1) K/mm3 Seg Neutrophils % (40.0-70.0) % Seg Neutrophils # (1.8-7.7) K/mm3 Sodium (137-145) mmol/L Potassium 4.5 D (3.6-5.0) mmol/L Chloride (98-107) mmol/L Carbon Dioxide (22-30) mmol/L Anion Gap mmol/L BUN (7-17) mg/dL Creatinine (0.6-1.2) mg/dL Estimated GFR ml/min BUN/Creatinine Ratio % Glucose (65-100) mg/dL Calcium (8.4-10.2) mg/dL Total Bilirubin (0.1-1.2) mg/dL AST (5-40) units/L ALT (7-56) units/L Alkaline Phosphatase (35-129) units/L Total Creatine Kinase (30-135) units/L Total Protein (6.3-8.2) g/dL Albumin (3.9-5) g/dL Albumin/Globulin Ratio % TSH (0.270-4.200) mlU/mL Free T4 (0.76-1.46) ng/dL HCG, Qual (Negative) Urine Color Yellow (Yellow) Urine Turbidity Clear (Clear) Urine pH 7.0 (5.0-7.0) Ur Specific [place] 1.012 (1.003-1.030) Urine Protein <15 mg/dl (Negative) mg/dL Urine Glucose (UA) Neg (Negative) mg/dL Urine Ketones 20 (Negative) mg/dL Urine Blood Neg (Negative) Urine Nitrite Neg (Negative) Urine Bilirubin Neg (Negative) Urine Urobilinogen 2.0 (<2.0) mg/dL Ur Leukocyte Esterase Mod (Negative) Urine WBC (Auto) < 1.0 (0.0-6.0) /HPF Urine RBC (Auto) 0.0 (0.0-6.0) /HPF Salicylates (2.8-20.0) mg/dL Urine Opiates Screen Negative Urine Methadone Screen Negative Acetaminophen (10.0-30.0) ug/mL Ur Barbiturates Screen Negative Ur Phencyclidine Scrn Negative Ur Amphetamines Screen Negative U Benzodiazepines Scrn Negative Urine Cocaine Screen Negative U Marijuana (THC) Screen Negative Drugs of Abuse Note Disclamer Plasma/Serum Alcohol (0-0.07) % Coronavirus (PCR) (Negative) 04/05/21 Range/Units 14:24 WBC 7.5 (4.5-11.0) K/mm3 RBC 4.26 (3.65-5.03) M/mm3 Hgb 12.8 (10.1-14.3) gm/dl Hct 39.6 (30.3-42.9) % MCV 93 (79-97) fl MCH 30 (28-32) pg MCHC 32 (30-34) % RDW 13.1 L (13.2-15.2) % Plt Count 200 (140-440) K/mm3 Lymph % (Auto) 27.5 (13.4-35.0) % [place] % (Auto) 6.5 (0.0-7.3) % Eos % (Auto) 3.4 (0.0-4.3) % Baso % (Auto) 1.0 (0.0-1.8) % Lymph # (Auto) 2.1 (1.2-5.4) K/mm3 [place] # (Auto) 0.5 (0.0-0.8) K/mm3 Eos # (Auto) 0.3 (0.0-0.4) K/mm3 Baso # (Auto) 0.1 (0.0-0.1) K/mm3 Seg Neutrophils % 61.6 (40.0-70.0) % Seg Neutrophils # 4.6 (1.8-7.7) K/mm3 Sodium (137-145) mmol/L Potassium (3.6-5.0) mmol/L Chloride (98-107) mmol/L Carbon Dioxide (22-30) mmol/L Anion Gap mmol/L BUN (7-17) mg/dL Creatinine (0.6-1.2) mg/dL Estimated GFR ml/min BUN/Creatinine Ratio % Glucose (65-100) mg/dL Calcium (8.4-10.2) mg/dL Total Bilirubin (0.1-1.2) mg/dL AST (5-40) units/L ALT (7-56) units/L Alkaline Phosphatase (35-129) units/L Total Creatine Kinase (30-135) units/L Total Protein (6.3-8.2) g/dL Albumin (3.9-5) g/dL Albumin/Globulin Ratio % TSH (0.270-4.200) mlU/mL Free T4 (0.76-1.46) ng/dL HCG, Qual (Negative) Urine Color (Yellow) Urine Turbidity (Clear) Urine pH (5.0-7.0) Ur Specific [place] (1.003-1.030) Urine Protein (Negative) mg/dL Urine Glucose (UA) (Negative) mg/dL Urine Ketones (Negative) mg/dL Urine Blood (Negative) Urine Nitrite (Negative) Urine Bilirubin (Negative) Urine Urobilinogen (<2.0) mg/dL Ur Leukocyte Esterase (Negative) Urine WBC (Auto) (0.0-6.0) /HPF Urine RBC (Auto) (0.0-6.0) /HPF Salicylates (2.8-20.0) mg/dL Urine Opiates Screen Urine Methadone Screen Acetaminophen (10.0-30.0) ug/mL Ur Barbiturates Screen Ur Phencyclidine Scrn Ur Amphetamines Screen U Benzodiazepines Scrn Urine Cocaine Screen U Marijuana (THC) Screen Drugs of Abuse Note Plasma/Serum Alcohol (0-0.07) % Coronavirus (PCR) (Negative) Vital Signs 03/31/21 03/31/21 03/31/21 05:14 05:35 06:27 Temperature 98.9 F 97.8 F 97.8 F Pulse Rate 83 70 68 Respiratory 18 20 20 Rate Blood Pressure 127/75 124/73 113/62 [Left] O2 Sat by Pulse 98 100 99 Oximetry O2 Sat by Pulse Oximetry [ Digit-Finger] 03/31/21 03/31/21 03/31/21 06:41 07:05 09:23 Temperature Pulse Rate 95 H Respiratory 15 Rate Blood Pressure 97/77 [Left] O2 Sat by Pulse 100 100 Oximetry O2 Sat by Pulse 99 Oximetry [ Digit-Finger] 03/31/21 03/31/21 03/31/21 10:00 21:09 21:14 Temperature 97.8 F Pulse Rate 68 75 Respiratory 16 20 Rate Blood Pressure 110/68 120/68 [Left] O2 Sat by Pulse 100 100 100 Oximetry O2 Sat by Pulse Oximetry [ Digit-Finger] 04/01/21 04/01/21 04/02/21 11:02 21:05 04:46 Temperature 98.3 F 97.5 F L Pulse Rate 71 69 Respiratory 16 16 Rate Blood Pressure 129/86 108/78 [Left] O2 Sat by Pulse 100 98 99 Oximetry O2 Sat by Pulse Oximetry [ Digit-Finger] 04/02/21 04/02/21 04/02/21 09:33 15:37 16:12 Temperature 98.3 F Pulse Rate 97 H Respiratory 18 18 19 Rate Blood Pressure 124/68 [Left] O2 Sat by Pulse 99 97 Oximetry O2 Sat by Pulse Oximetry [ Digit-Finger] 04/02/21 04/03/21 04/03/21 21:07 05:29 10:53 Temperature 97.6 F 97.2 F L Pulse Rate 84 82 Respiratory 18 18 18 Rate Blood Pressure 133/89 124/70 [Left] O2 Sat by Pulse 100 97 100 Oximetry O2 Sat by Pulse Oximetry [ Digit-Finger] 04/03/21 04/03/21 04/04/21 11:08 20:03 07:46 Temperature 98.3 F Pulse Rate 94 H Respiratory 18 Rate Blood Pressure 123/85 [Left] O2 Sat by Pulse 100 100 Oximetry O2 Sat by Pulse Oximetry [ Digit-Finger] 04/04/21 04/04/21 04/05/21 09:12 20:12 02:54 Temperature 98.2 F 98.5 F 98.2 F Pulse Rate 88 84 74 Respiratory 20 16 16 Rate Blood Pressure 113/53 114/61 108/57 [Left] O2 Sat by Pulse 100 99 98 Oximetry O2 Sat by Pulse Oximetry [ Digit-Finger] 04/05/21 04/06/21 04/06/21 22:55 05:50 10:52 Temperature 97.8 F Pulse Rate 94 H Respiratory 18 18 Rate Blood Pressure 118/77 [Left] O2 Sat by Pulse 100 100 99 Oximetry O2 Sat by Pulse Oximetry [ Digit-Finger] 04/06/21 12:38 Temperature 97.5 F L Pulse Rate 90 Respiratory 18 Rate Blood Pressure 134/74 [Left] O2 Sat by Pulse 100 Oximetry O2 Sat by Pulse Oximetry [ Digit-Finger]
== END 2021-04-06 15:01 | disposition home or self-care (01) ==
LOC: EDBD → ED 05:03
DX: F31.9 Bipolar disorder, unspecified (principal); F29 Unspecified psychosis not due to a substance or known physiological condition; Z20.822 Contact with and (suspected) exposure to COVID-19
CPT/HCPCS: 36415; 70450; 80053; 80307; 81001; 82550; 84439; 84443; 84703; 85025; 93005; 93010; 96372; 99285; J1630; J2060; U0003; 80320; G0480